=== PATIENT | female | born 1965 | race Caucasian/White ===

== ENCOUNTER 2017-12-09 10:07 | Emergency (ER) | payer OTHER ==
[2017-12-09 10:24] VITALS: BP 107/72; PULSE 82; RESP 18; TEMP 98.4; O2SAT 99
--- NOTE | 2017-12-09 14:24 | C.PDOC ---
History Of Present Illness 52 year old female presents to the emergency department with complaints of pain and swelling to the left foot persisting for the last week. Patient denies trauma, but reports that she had experienced similar symptoms before. She states that she is using an unknown cream on her foot with no improvement of her symptoms. Chief Complaint (Nursing): Abnormal Skin Integrity History Per: Patient History/Exam Limitations: no limitations Onset/Duration Of Symptoms: Days (7) Current Symptoms Are (Timing): Still Present Location Of Injury: Left: Foot Quality Of Symptoms: Painful, Swollen Past Medical History Reviewed: Historical Data, Nursing Documentation, Vital Signs Vital Signs: Last Vital Signs Temp 98.4 F 12/09/17 10:20 Pulse 82 12/09/17 10:20 Resp 18 12/09/17 10:20 BP 107/72 12/09/17 10:20 Pulse Ox 99 12/09/17 14:29 - Medical History PMH: Hypothyroidism Surgical History: No Surg Hx Family History: States: No Known Family Hx - Social History Hx Alcohol Use: Yes Hx Substance Use: No - Immunization History Hx Tetanus Toxoid Vaccination: No Hx Influenza Vaccination: No Hx Pneumococcal Vaccination: No Review Of Systems Except As Marked, All Systems Reviewed And Found Negative. Musculoskeletal: Positive for: Foot Pain (left), Other (left foot swelling) Physical Exam - Physical Exam Appears: Non-toxic, No Acute Distress Skin: Warm, Other (tinia noted in between 3rd, 4th, and 5th toes on left foot. Fluid filled cyst between 4th and 5th toes. Erythema from the base of the 4th and 5th toe to the middle of the left foot. ) Head: Atraumatic, Normacephalic Eye(s): bilateral: Normal Inspection Nose: Normal Neck: Normal, Supple Extremity: Normal ROM Neurological/Psych: Oriented x3, Normal Speech, Normal Cognition ED Course And Treatment O2 Sat by Pulse Oximetry: 99 (RA) Pulse Ox Interpretation: Normal Progress Note: Fluid-filled cyst drain, clear fluid was expressed. Patient was given antibiotics and will follow up with her PMD. Disposition - Disposition Referrals: Marion Barksdale, [Non-Staff] - Disposition: HOME/ ROUTINE Disposition Time: 10:40 Condition: GOOD Additional Instructions: STERLING GARCÍA, thank you for letting us take care of you today. Your provider was Roderick Lane DO and you were treated for FOOT PAIN. The emergency medical care you received today was directed at your acute symptoms. If you were prescribed any medication, please fill it and take as directed. It may take several days for your symptoms to resolve. Return to the Emergency Department if your symptoms worsen, do not improve, or if you have any other problems. Please contact your doctor or call one of the physicians/clinics you have been referred to that are listed on the Patient Visit Information form that is included in your discharge packet. Bring any paperwork you were given at discharge with you along with any medications you are taking to your follow up visit. Our treatment cannot replace ongoing medical care by a primary care provider outside of the emergency department. Thank you for allowing the Infusion [facility] team to be part of your care today. Follow up with your primary care doctor in 2-3 days for re-evaluation and further management. Prescriptions: Cephalexin [cephalexin] 500 mg PO TID #21 cap Ketoconazole 15 gm TP BID #1 cream..g. Sulfamethoxazole/Trimethoprim [Bactrim DS 800 mg-160 mg] 1 tab PO BID #14 tab Instructions: Cellulitis (Skin Infection), Adult (DC), Athlete's Foot (DC) Forms: [employer] ([place]zeri) - Clinical Impression Clinical Impression: Tinea pedis, Cellulitis - Scribe Statement The provider has reviewed the documentation as recorded by the Scribe (Adilson Figueroa) Provider Attestation: All medical record entries made by the Scribe were at my direction and personally dictated by me. I have reviewed the chart and agree that the record accurately reflects my personal performance of the history, physical exam, medical decision making, and the department course for this patient. I have also personally directed, reviewed, and agree with the discharge instructions and disposition.
== END 2017-12-09 11:00 | disposition home or self-care (01) ==
LOC: C.ER 10:07
DX: B35.3 Tinea pedis (principal); L03.116 Cellulitis of left lower limb